=== PATIENT | female | born 1935 | race Caucasian/White ===

== ENCOUNTER 2017-05-24 22:02 | Inpatient (IN) | payer OTHER, MEDICARE ==
--- NOTE | 2017-05-24 22:23 | CPEKG ---
Heart Rate: 79 RR Interval: 759 P-R Interval: 172 QRSD Interval: 98 QT Interval: 376 QTC Interval: 432 P [place]: 21 QRS [place]: 34 T Wave [place]: 108 EKG Severity - ABNORMAL ECG - EKG Impression: SINUS RHYTHM EKG Impression: MULTIPLE ATRIAL PREMATURE COMPLEXES EKG Impression: PROBABLE LEFT ATRIAL ABNORMALITY EKG Impression: NONSPECIFIC T ABNORMALITIES, LATERAL LEADS Electronically Signed By: Felicia Perea 25-May-2017 08:00:40
--- NOTE | 2017-05-24 22:25 | EDPHY ---
H & P Stated Complaint: difficulty walking and speaking HPI/ROS: HPI The patient presents brought in by ambulance with right-sided leg weakness which she noticed initially at 6:30 p.m. roma. She has been sick for the last 3 weeks, feeling tired and weak, spending most of her day in bed. She has been evaluated by her primary care doctor and was diagnosed with a pneumonia and is currently taking azithromycin. Three days ago she had an abnormal chest x-ray she says. Ludinight she was walking downstairs and noticed that it was difficult for her right leg to go down the stairs. She was able to walk and did not fall. Then again when she went up stairs she had difficulty walking because her leg felt weak. She did not have any numbness or tingling of her leg. She called her primary care doctor and was instructed to call 911 which she did. She does not have any weakness of her arms, does not have any facial droop that she has noticed. She also says that she had some difficulty finding the words to say when she was speaking. However, her was with her and did not notice any slurring of her speech are any difficulties in her speech. REVIEW OF SYSTEMS Constitutional: No fever, no chills. Eyes: No discharge. ENT: No sore throat. Cardiovascular: No chest pain, no palpitations. Respiratory: No cough, no shortness of breath. Gastrointestinal: No abdominal pain, no vomiting. Genitourinary: No hematuria. Musculoskeletal: No back pain. Skin: No rashes. Neurological: No headache. PMHx: History of lung cancer status post lobectomy, she is on supplemental oxygen at home, hypertension Soc Hx: Lives at home with her and a gunbarrel PHYSICAL General Appearance: Eyes: Pupils equal and round no pallor or injection ENT, Mouth: Mucous membranes moist Respiratory: There are no retractions, lungs are clear to auscultation Cardiovascular: Regular rate and rhythm Gastrointestinal: Abdomen is soft and non-tender, no masses, bowel sounds normal Neurological: A&O oriented x4, cranial nerves 2-12 intact, 5/5 strength in upper and lower extremities which is symmetric, sensation is intact to light touch, speech is fluid, no slurring Skin: Warm and dry, no rashes Musculoskeletal: Neck is supple non tender Extremities: symmetrical, full range of motion Psychiatric: Patient is oriented X 3, there is no agitation Source: Patient, EMS Exam Limitations: No limitations - Personal History Current Tetanus Diphtheria and Acellular Pertussis (TDAP): Yes Tetanus Vaccine Date: < 10 YRS - Medical/Surgical History Other PMH: lung ca, reflux,htn, - Social History Smoking Status: Never smoked Constitutional: Initial Vital Signs Temperature (C) 36.9 C 05/24/17 22:13 Heart Rate 88 05/24/17 22:13 Respiratory Rate 20 05/24/17 22:13 Blood Pressure 110/88 H 05/24/17 22:13 O2 Sat (%) 95 05/24/17 22:13 O2 Delivery Mode Nasal Cannula O2 (L/minute) 3 Allergies/Adverse Reactions: Penicillins Allergy (Severe, Verified 07/24/12 13:21) THROAT SWELLS, SOB/HIVES ENVIRONMENTAL Allergy (Mild, Uncoded 07/24/12 13:41) STUFFY NOSE AND COUGH Home Medications: Medication Instructions Recorded Aspirin [Aspirin 81mg (*)] 81 mg PO DAILY 06/09/12 Glipizide [Glipizide 5 mg (RX)] 10 mg PO BIDMEAL 06/09/12 Levothyroxine [Synthroid 112 mcg 112 mcg PO DAILY06 06/09/12 (*)] Lisinopril [Zestril 20 mg (*)] 20 mg PO DAILY 06/09/12 Albuterol [Proventil Inhaler (RX)] 1 puffs IH PRN PRN 07/24/12 metFORMIN HCL [Glucophage 500 mg 1,000 mg PO BIDMEAL 07/24/12 (RX)] FLUoxetine [Prozac 20 MG (RX)] 20 mg PO DAILY 10/15/12 Furosemide [Lasix 40 MG (RX)] 40 mg PO DAILY 10/15/12 Omeprazole 20 mg PO DAILY 10/15/12 Azithromycin 05/24/17 Carvedilol 05/24/17 Spironolactone 05/24/17 Medical Decision Making - Diagnostics Imaging Results: Imaging Impressions Chest X-Ray 05/24/17 22:19 Impression: 1. New pleural nodularity in the right chest with right hilar fullness, which could be related to recurrence. If a recent CT chest has not been performed, CT chest would be useful for further evaluation. 2. New right basilar consolidation and elevation of the right hemidiaphragm, which could be related to atelectasis, effusion, and/or pneumonia. 3. Additional findings as above. Findings discussed with Felicia Perea MD 05/24/2017 at 22:58. Head CT 05/24/17 22:19 Impression: 1. No acute intracranial findings. 2. Diffuse cerebral atrophy with periventricular and subcortical low attenuation consistent with chronic microvascular ischemic gliosis. 3. Additional findings as above. Findings discussed with Felicia Perea MD 05/24/2017 at 23:04. Chest CT 05/24/17 23:05 Impression: 1. Innumerable bilateral pulmonary nodules consistent with metastases. 2. Masslike fullness in the region of a right upper lobe resection line, suspicious for local recurrence. 3. Probable subcarinal adenopathy. 4. Large loculated right pleural effusion, likely malignant. 5. Indeterminate right breast nodule, new since 2012. 6. Additional findings as above. Findings discussed with Felicia Perea MD 05/25/2017 at 0:06. Differential Diagnosis: 81-year-old female with lung cancer on home oxygen, recent respiratory infection on azithromycin with 3 weeks of generalized weakness presents with several hours of right leg weakness by report and difficulty with her speech. On exam, she has no neurologic deficits. NIH stroke scale is 0. She may have some subtle leg weakness that we do not see on exam currently. CT scan of the head was performed which showed no acute abnormalities. The patient had no recurrence of her symptoms. Chest x-ray was performed given her generalized malaise over the last few weeks and history of abnormal chest x- ray. This did show what appears to be a pleural effusion. Because of her history of malignancy CT scan of her chest was performed which unfortunately did demonstrate recurrence of her cancer with metastatic disease of her lungs and large loculated pleural effusion. I discussed this with her. She may benefit from thoracentesis while in the hospital. I feel she may have suffered from a TIA, however given her CT scan findings I would entertain brain or spine Mets is the cause of her symptoms. I discussed the case with Dr. Calle of the hospitalist service and we will admit the patient. - Data Points Laboratory Results: Laboratory Results 05/24/17 22:20 05/24/17 22:20 05/24/17 05/24/17 05/24/17 23:45 22:20 22:20 WBC 8.30 10^3/uL 10^3/uL (3.80-9.50) RBC 4.59 10^6/uL 10^6/uL (4.18-5.33) Hgb 13.5 g/dL g/dL (12.6-16.3) Hct 42.2 % % (38.0-47.0) MCV 91.9 fL fL (81.5-99.8) MCH 29.4 pg pg (27.9-34.1) MCHC 32.0 g/dL L g/dL (32.4-36.7) RDW 13.7 % % (11.5-15.2) Plt Count 292 10^3/uL 10^3/uL (150-400) MPV 10.2 fL fL (8.7-11.7) Neut % (Auto) 70.3 % % (39.3-74.2) Lymph % (Auto) 12.8 % L % (15.0-45.0) [place] % (Auto) 11.9 % % (4.5-13.0) Eos % (Auto) 4.1 % % (0.6-7.6) Baso % (Auto) 0.5 % % (0.3-1.7) Nucleat RBC Rel Count 0.0 % % (0.0-0.2) Absolute Neuts (auto) 5.84 10^3/uL 10^3/uL (1.70-6.50) Absolute Lymphs (auto) 1.06 10^3/uL 10^3/uL (1.00-3.00) Absolute Monos (auto) 0.99 10^3/uL H 10^3/uL (0.30-0.80) Absolute Eos (auto) 0.34 10^3/uL 10^3/uL (0.03-0.40) Absolute Basos (auto) 0.04 10^3/uL 10^3/uL (0.02-0.10) Absolute Nucleated RBC 0.00 10^3/uL 10^3/uL (0-0.01) Immature Gran % 0.4 % % (0.0-1.1) Immature Gran # 0.03 10^3/uL 10^3/uL (0.00-0.10) Sodium 139 mEq/L mEq/L (134-144) Potassium 5.3 mEq/L H mEq/L (3.5-5.2) Chloride 103 mEq/L mEq/L (97-110) Carbon Dioxide 24 mEq/l mEq/l (22-31) Anion Gap 12 mEq/L mEq/L (8-16) BUN 22 mg/dL mg/dL (7-23) Creatinine 1.4 mg/dL H mg/dL (0.6-1.0) Estimated GFR 36 Glucose 112 mg/dL H mg/dL (70-100) Calcium 9.8 mg/dL mg/dL (8.5-10.4) Troponin I 0.017 ng/mL ng/mL (0.000-0.034) Urine Color YELLOW Urine Appearance MODERATELY TURBID Urine pH 5.0 (5.0-7.5) Ur Specific [place] 1.027 (1.002-1.030) Urine Protein NEGATIVE (NEGATIVE) Urine Ketones TRACE H (NEGATIVE) Urine Blood NEGATIVE (NEGATIVE) Urine Nitrate NEGATIVE (NEGATIVE) Urine Bilirubin NEGATIVE (NEGATIVE) Urine Urobilinogen 2.0 EU H EU (0.2-1.0) Ur Leukocyte Esterase 3+ H (NEGATIVE) Urine RBC 1-3 /hpf /hpf (0-3) Urine WBC 5-10 /hpf H /hpf (0-3) Ur Epithelial Cells 2+ /lpf H /lpf (NONE-1+) Urine Bacteria TRACE /hpf H /hpf (NONE SEEN) Urine Mucus TRACE /lpf /lpf (NONE-1+) Urine Glucose NEGATIVE (NEGATIVE) Medications Given: Sodium Chloride (Ns) 1,000 mls @ 75 mls/hr IV CONT ZEFERINO Stop: 11/21/17 02:59 Last Admin: 05/25/17 03:34 Dose: 1,000 mls Discontinued Medications Sodium Chloride (Ns) 1,000 mls @ 0 mls/hr IV EDNOW ONE; Wide Open PRN Reason: Protocol Stop: 05/24/17 23:06 Last Admin: 05/24/17 23:55 Dose: 1,000 mls Departure - Departure Disposition: [facility] Acute Clinical Impression: Right leg weakness, Pleural effusion Lung cancer Qualifiers: Laterality: unspecified laterality Lung location: unspecified part of lung Qualified Code(s): C34.90 - Malignant neoplasm of unspecified part of unspecified bronchus or lung Condition: Fair
[2017-05-24 22:36] LABS: % IMMATURE GRANULYOCYTES 0.4 % (0.0-1.1); ABSOLUTE IMMATURE GRANULOCYTES 0.03 10^3/uL (0.00-0.10); ADD DIFF? NO; ADD MORPH? NO; ADD SCAN? NO; ATYPICAL LYMPHOCYTE FLAG 0 (0-99); FRAGMENT RBC FLAG 0 (0-99); HEMATOCRIT 42.2 % (38.0-47.0); HEMOGLOBIN 13.5 g/dL (12.6-16.3); LEFT SHIFT FLG 0 (0-99); LIPEMIA HEMOLYSIS FLAG 80 (0-99); MEAN CELL HEMOGLOBIN 29.4 pg (27.9-34.1); MEAN CELL VOLUME 91.9 fL (81.5-99.8); MEAN PLATELET VOLUME 10.2 fL (8.7-11.7); PLATELET CLUMPS FLAG 0 (0-99); PLATELET COUNT 292 10^3/uL (150-400); RED BLOOD CELL COUNT 4.59 10^6/uL (4.18-5.33); RED CELL DISTRIBUTION WIDTH 13.7 % (11.5-15.2)
[2017-05-24 22:47] LABS: ANION GAP 12 mEq/L (8-16); CALCIUM 9.8 mg/dL (8.5-10.4); CARBON DIOXIDE 24 mEq/l (22-31); CHLORIDE 103 mEq/L (97-110); CREATININE 1.4 mg/dL (0.6-1.0); GLOMERULAR FILTRATION RATE 36; GLUCOSE 112 mg/dL (70-100); POTASSIUM 5.3 mEq/L (3.5-5.2); SODIUM 139 mEq/L (134-144)
[2017-05-24 23:00] LABS: TROPONIN I 0.017 ng/mL (0.000-0.034)
[2017-05-24] MEDS ORDERED: PANTOPRAZOLE SODIUM 40 MG VIAL ONE (23:01)
[2017-05-24] MEDS ORDERED: ONDANSETRON 4 MG/2 ML VIAL ONE (23:01)
[2017-05-24] MEDS ORDERED: NS 1,000 ML IV ONE (23:05)
[2017-05-24] MEDS ORDERED: IOPAMIDOL (ISOVUE-300) 100 ML BTL ONE (23:34)
[2017-05-25 00:05] LABS: BACTERIA TRACE /hpf (NONE SEEN); COLOR YELLOW; LEUKOCYTE ESTERASE,URINE 3+ (NEGATIVE); MUCUS TRACE /lpf (NONE-1+); NITRITE,URINE NEGATIVE (NEGATIVE)
[2017-05-25] MEDS ORDERED: LABETALOL HCL 5 MG/ML 20 ML MDV IVP PRN (00:35)
[2017-05-25] MEDS ORDERED: HYDROCODONE/APAP 5/325 TAB PO PRN (00:40)
[2017-05-25] MEDS ORDERED: ONDANSETRON 4 MG/2 ML VIAL IVP PRN (00:40)
[2017-05-25] MEDS ORDERED: LORazepam 2 MG/ML INJ IVP PRN (02:50)
[2017-05-25] MEDS ORDERED: NS 1,000 ML IV SCH (03:00)
[2017-05-25] MEDS ORDERED: D50W 25 GM/50 ML SYR IVP PRN (03:30)
[2017-05-25 05:28] LABS: % IMMATURE GRANULYOCYTES 0.3 % (0.0-1.1); ABSOLUTE IMMATURE GRANULOCYTES 0.02 10^3/uL (0.00-0.10); ADD DIFF? NO; ADD MORPH? NO; ADD SCAN? NO; FRAGMENT RBC FLAG 0 (0-99); HEMATOCRIT 38.7 % (38.0-47.0); HEMOGLOBIN 12.4 g/dL (12.6-16.3); LEFT SHIFT FLG 0 (0-99); LIPEMIA HEMOLYSIS FLAG 80 (0-99); RED CELL DISTRIBUTION WIDTH 13.6 % (11.5-15.2)
--- NOTE | 2017-05-25 05:35 | GHP ---
[f rep st] HISTORY AND PHYSICAL DATE OF ADMISSION: 05/24/2017 SOURCE: Patient provides history, appears reliable. Her is at bedside and supplements maged sloan. EMR reviewed and case discussed with ED provider. HISTORY OF PRESENT ILLNESS: This is a very pleasant, 81-year-old female with past medical history si gnificant for lung cancer status post resection in 2012, hypertension, diabetes, CHF, GERD, hypothyro idism, depression, macular degeneration, who presents to the emergency department with complaints of ongoing difficulties with walking and speaking. Symptoms were identified at approximately 6:30 p.m. The patient states that she noticed that her right leg appeared to be quite heavy and she was having to really focus to lift her leg to get up and down the stairs. Over the course of this time patient also reports that she noticed that she was having trouble finding her words and was able to say them clearly but was just taking some time to be able to move her thoughts into speech. Her mick es witnessing any dysarthria, slurred speech, garbled speech, facial drooping or any confusion. Afte r some consideration, patient thinks that perhaps her right leg weakness may have started even the da y prior. The patient has been feeling quite fatigued and short of breath with ongoing cough for the last 3 weeks and so she has primarily been staying in bed for the majority of the last several days. Also, she has had significantly decreased appetite. She reports a 10 pound unintentional weight los s since January. The patient denies any fevers, chills, or sweats. Upon arrival to the emergency depar tment, patient's symptoms have resolved. The patient recently completed a course of azithromycin. S he had been having ongoing coughing, occasionally productive and worsening dyspnea. Initial evaluati on was concerning for some changes from her baseline. She is status post right upper lobe resection. The patient states that her PCP initiated treatment for pneumonia while awaiting further studies in cluding plans for outpatient CT and repeat chest x-ray. REVIEW OF SYSTEMS: GENERAL: No fevers, chills, sweats. SKIN: No rashes sores. ENT: No congestion or sore throat. EYES: Patient with declining vision, has been undergoing injections for macular de generation, but no ocular pain or new acute changes. CV: The patient denies any chest pain or palpi tations except with some pleuritic type substernal chest pain with coughing only. RESPIRATORY: Idalmis ent with noted shortness of breath. She finds that she has been having increased oxygen needs at [facility]. She does normally wear oxygen at h.s. but has been finding she needs it during the day. She mick es any orthopnea or PND at home, but again has been wearing her oxygen. GI: Some nausea in the a.m. for the last 3 weeks without any vomiting. No abdominal pain. No melena or hematochezia. : No dysuria, hematuria, urgency, frequency. No flank pain. MUSCULOSKELETAL: The patient denies any acu te joint or muscle pains. NEURO: Patient denies any headache. No numbness, tingling. Right leg he aviness as noted per HPI. PSYCH: The patient's mood is stable. The remainder review of systems neg ative except as noted above. ALLERGIES: Penicillin and Lipitor causing myalgias. HOME MEDICATIONS: As per EMR. Spironolactone, carvedilol, status post azithromycin, metformin, omep razole, lisinopril, levothyroxine, glipizide, furosemide, fluoxetine, aspirin, albuterol. PAST MEDICAL HISTORY: Significant for lung cancer diagnosed and treated in 2012 with a right upper l obe lobectomy. Patient reports that the tumor was completely encased and did not undergo any radiati on as it was felt that she was in remission and reports a followup CT was 1-2 years ago but cannot re call the specific details. Benign essential hypertension, diabetes type 2, GERD, hypothyroidism, dep ression, CHF, macular degeneration, seasonal allergies, nocturnal hypoxia with requirement for oxygen at h.s. PAST SURGICAL HISTORY: Significant for right upper lobe lobectomy, right total knee arthroplasty, ap pendectomy, cataract surgery bilaterally with extraction and lens placement, lumpectomy of the breast which was found to be benign and hysterectomy. FAMILY HISTORY: Significant for CAD in father, age 58. Mother with GA at age 45. Maternal grandmother with GA at age 45 as well as a TIA. SOCIAL HISTORY: Patient is , lives with her , Oracio. Does not smoke. Has had exposur e to secondhand smoke as a child. No drugs or alcohol reported. CODE STATUS: The patient with advance directive completed. Her daughter, Rosario Cordova, is MD GABRIELLE [place] nd patient desires to be a full code. Does not want prolonged life support. PHYSICAL EXAMINATION: VITALS: Upon arrival, blood pressure 110/88, heart rate 88, respiratory rate 20, O2 saturation 95% on 3 L by nasal cannula. Temperature is 36.9. Vitals on the floor: Blood pre ssure 169/98, heart rate 90, respiratory rate 19, O2 saturation 97% on 2 L by nasal cannula. Tempera ture 36.9. GENERAL: No acute distress. Very pleasant, obese, elderly lady who appears slightly you nger than stated age, is lying quietly in bed. Her is at bedside. HEAD: Normocephalic, atr aumatic. EYES: Extraocular muscles are intact. Pupils equal, round, react to light bilaterally and symmetric. Lens reflex is appreciated bilaterally. No scleral icterus or conjunctival injection. ENT: Mucous membranes appear slightly dry. No oropharyngeal erythema or exudates. Dentition intact . NECK: Supple, trachea is midline. CV: Regular rate and rhythm. No murmurs, rubs, or gallops ap preciated. No chest wall tenderness to palpation. RESPIRATORY: Unlabored breathing. Lungs are janelle ar to auscultation bilaterally with the exception of diminished breath sounds bilaterally, worse on t he right than the left. No rhonchi or rales appreciated. The patient does have an intermittent coug h that is nonproductive during the interview. GI: Abdomen is obese with positive bowel sounds, soft , nontender to palpation. No rebound, guarding, or masses appreciated. : No Fisher in place. No suprapubic tenderness to palpation. EXTREMITIES: Patient without any cyanosis, clubbing, or edema a ppreciated. Patient with 1+ pedal pulses bilateral lower extremities. NEURO: Cranial nerves 2-12 a re intact symmetric bilaterally. Patient is awake, alert, and oriented x3. Moves all extremities an d strength with generalized weakness. The patient is able to turn on her side, some difficulty sitti ng up independently. No focal weakness noted. Sensation intact to upper and lower extremities bilat erally and symmetric. PSYCHIATRIC: The patient is awake, alert, and oriented x4. Thought process: Content and questions are appropriate. Patient does appears just a little bit anxious. LABORATORY STUDIES: WBC 8.30, hemoglobin and hematocrit 13.5 and 42.2, MCV 91.9, platelet count 292, no bands. Sodium is 139, potassium 5.3, chloride 103, CO2 24, anion gap 12, BUN 22, creatinine is 1 .4, GFR is 36. Baseline creatinine, based on available previous labs, appears to be 1.1. Glucose 11 2, calcium 9.8, troponin 0.017. Urinalysis: Specific gravity is 1.027, pH of 5.0, yellow, moderatel y turbid, trace ketones, 2.0 urobilinogen, 3+ leukocyte esterase, RBCs 1-3 WBCs, 5-10, epithelial ifeanyi ls 2+, trace bacteria. IMAGE STUDIES: EKG, reviewed myself, showing normal sinus rhythm with PACs, no acute ST changes. Chest x-ray: Image and report reviewed myself showing new pleural nodularity right chest with right hilar fullness. New right basilar consolidation and elevation of the right hemidiaphragm, could be r elated to atelectasis, effusion, or pneumonia. Cardiomegaly, grossly stable. Old healed right rib f ractures noted. CT chest with contrast showing innumerable bilateral pulmonary nodules consistent with metastasis. M asslike fullness in the region of the right upper lobe resection line, suspicious for local recurrenc e. Probable subcarinal adenopathy. Large loculated right pleural effusion, likely malignant. Indet erminate right breast nodule, new since 2012. Additional findings: Cardiomegaly that appears stable . Decreased trace pericardial effusion. Moderate atherosclerosis in normal caliber aorta. No centr al pulmonary embolus. No aggressive osseous lesions identified. Degenerative changes in the spine. Old fused right 4th rib fracture. DISCUSSION AND DECISION-MAKIN. This is a very pleasant 81-year-old female with multiple chronic medical problems who presents wi th complaints of right leg weakness and word-finding difficulties. Differential diagnosis including transient ischemic attack versus less likely cerebrovascular accident, as patient's symptoms have com pletely resolved versus hypoxia versus acute kidney injury and hyperkalemia. CT of the head was nega tive. NIH scoring is 0 at this time and upon arrival to the ER. We will obtain an MRI in the [facility] to verify given patient does have multiple risk factors. Ativan 0.5 will be given prior to procedu re. PT, OT and the remainder of the stroke protocol is in place. 2. Metastatic disease of the lung. The patient does have a history of lung cancer and this likely r epresents a recurrence. She also has a noted nodule on the right breast, which is new since 2012. Diane garza does note a history of a lumpectomy that was found to be benign. The patient does have a larg e loculated effusion that is concerning for malignant effusion. The patient is also complaining of f eeling significantly symptomatic related to her shortness of breath and coughing. Following MRI resu lts, will further investigate the possibility of doing a diagnostic and therapeutic thoracentesis. Diane garza will be made n.p.o. as she does report she feels like she is drowning is amenable to any oppor tunities for relief of her symptoms. 3. Acute kidney injury, likely related to dehydration with a history of recent decline in oral intak e secondary to fatigue and is generally feeling unwell with a poor appetite. The patient also with s ome hyperkalemia, likely also related. She has received a liter bolus in the emergency department. We will continue some gentle hydration overnight as patient continues to have poor oral intake and syed s complaints of nausea. 4. Asymptomatic bacteriuria as per ISID guidelines. Patient is afebrile, she is asymptomatic and al though grossly abnormal, will not treat unless patient develops any symptoms or fever. She does not have any evidence of leukocytosis either. 5. Diabetes type 2. Will hold metformin with acute kidney injury. We will also check a lactic acid in the morning. We will put patient on insulin sliding scale for now at this time, and once diet ca n be advanced, will be on ADA diet. 6. Benign essential hypertension. Blood pressure is mildly elevated, but patient is asymptomatic. We will continue to monitor, p.r.n. hydralazine. 7. Congestive heart failure, type unknown. The patient denies any orthopnea, paroxysmal nocturnal d yspnea or lower extremity symptoms consistent with congestive heart failure exacerbation, the pleural effusion is most likely malignant in nature. 8. Fluid, electrolyte, nutrition. Gentle IV fluid hydration overnight for gentle hydration. Oseas mckoy does appear dry. She does have a history of congestive heart failure. Will need to monitor fluid status closely. 9. Electrolytes. We will repeat a BMP in the morning to see if the potassium has declined status po st IV fluids. 10. Prophylaxis. SCDs, holding anticoagulation in setting of possible thoracentesis. 11. COR status at this time is full. Patient with advance directives. Daughter, Rosario Cordova, is MD ANTHONY and she does not want any long-term intubation. DISPOSITION: Patient admitted to observation at this time pending MRI and further evaluation of this pleural effusion, which possibly may be able to follow up outpatient if patient is stable. /[id number]/MODL
[2017-05-25 05:45] LABS: ATYPICAL LYMPHOCYTE FLAG 10 (0-99); MEAN CELL HEMOGLOBIN 29.6 pg (27.9-34.1); MEAN CELL VOLUME 92.4 fL (81.5-99.8); MEAN PLATELET VOLUME 9.9 fL (8.7-11.7); PLATELET CLUMPS FLAG 0 (0-99); PLATELET COUNT 225 10^3/uL (150-400); RED BLOOD CELL COUNT 4.19 10^6/uL (4.18-5.33)
[2017-05-25 05:52] LABS: ALANINE AMINOTRANSFERASE 28 IU/L (9-52); ALBUMIN 3.2 g/dL (3.5-5.0); ALKALINE PHOSPHATASE 64 IU/L (38-126); ANION GAP 10 mEq/L (8-16); ASPARTATE AMINOTRANSFERASE 14 IU/L (14-46); BILIRUBIN,TOTAL 0.3 mg/dL (0.1-1.4); CALCIUM 8.9 mg/dL (8.5-10.4); CARBON DIOXIDE 27 mEq/l (22-31); CHLORIDE 104 mEq/L (97-110); CREATININE 1.2 mg/dL (0.6-1.0); GLOMERULAR FILTRATION RATE 43; GLUCOSE 81 mg/dL (70-100); POTASSIUM 4.7 mEq/L (3.5-5.2); SODIUM 141 mEq/L (134-144); TOTAL PROTEIN 5.5 g/dL (6.3-8.2)
[2017-05-25] MEDS ORDERED: ALBUTEROL 3 ML DEYVIAL IH PRN (07:00)
[2017-05-25] MEDS ORDERED: ALBUTEROL 60 PUFFS/8 GM MDI IH PRN (07:01)
[2017-05-25] MEDS ORDERED: ALBUTEROL 200 PUFFS/18 GM MDI IH PRN (07:30)
[2017-05-25] MEDS ORDERED: ENOXAPARIN 30 MG/0.3 ML SYR SC SCH (09:00)
--- NOTE | 2017-05-25 09:17 | HOSPPROG ---
Hospitalist Progress Note Assessment/Plan: AHRF 2/2 pulmonary nodules with masslike RUL fullness concerning for recurrence of prior lung cancer - On 2 LPM O2. Had RUL lobectomy 2012, CTA in 2013 post- resection was negative for nodules of e/o malignancy. She has not seen Dr. Butts in ~1.5 yrs. -sample pleural fluid -oncology consulted, discussed case with Dr. Cervantes who will consult -wean O2 as above Pleural effusion - thoracentesis today for diagnostic and therapeutic purposes -send fluid for cell count/diff, culture and cytology -discussed likely to recur, could consider pleurx catheter if has rapid reaccumulation RLE weakness - CT head neg. -MRI brain this am -Also recommend MRI whole spine to evaluate for spinal mets contributing to symptoms. Pt wishes to defer this until she speaks with her primary and oncologist -PT/OT DM type 2 - bg's well controlled. -cont SSI, hold metformin for now Hypertension - resume outpt meds once med rec completed Chronic heart failure - stable, no e/o acute exacerbation -cont home meds, awaiting med rec SEBASTIÁN / CKD - near baseline ~1.3 Hypothyroidisim - cont LT4 Depression - cont SSRI DVT PPLX - high risk, Lovenox Full code Dispo - change to inpt, will need ongoing hospitalization for w/u of pulmonary nodules, pleural effusion and RLE weakness, PT/OT to eval mobility Subjective: Pt feels ok. RLE weakness seems improved. No speech abnormalities. No syed or vision changes. She denies CP or SOB, mild cough. Last saw Dr. Butts at [facility] 1.5 yrs ago. Objective: Vital Signs Temp Pulse Resp BP Pulse Ox 36.8 C 86 22 H 172/91 H 96 05/25/17 08:02 05/25/17 08:34 05/25/17 08:34 05/25/17 08:02 05/25/17 08:34 Laboratory Results 05/25/17 05:17 05/25/17 05:17 05/24/17 05/25/17 05/26/17 06:59 05:59 05:59 Intake Total 225 Balance 225 - Physical Exam Constitutional: no apparent distress Eyes: PERRL Ears, Nose, Mouth, Throat: moist mucous membranes Cardiovascular: regular rate and rhythym Respiratory: no respiratory distress, clear to auscultation Gastrointestinal: normoactive bowel sounds, soft, non-tender abdomen Skin: warm Musculoskeletal: other (4/5 proximal RLE strength 5/5 LLE strength) Neurologic: AAOx3 Psychiatric: interacting appropriately ICD10 Worksheet Patient Problems: Problems Problem Status Onset Lung cancer Acute Pleural effusion Acute Right leg weakness Acute
--- NOTE | 2017-05-25 09:51 | PDMN ---
Medical Necessity Medical necessity: C/M review: est. > 2 [place] LOS for eval and TX of acute hypoxemic respiratory failure secondary to pulmonary nodules with mass like RUL fullness concerning for recurrence of lung cancer, pleural effusion, right lower extremity weakness, acute kidney injury requiring planned Oncology consult , 05/25/2017 thoracentesis, ongoing cardiac monitoring, IV fluids, supplemental O2 2L/min., acute inpt PT/OT, comorbid type 2 diabetes, hypertension, chronic heart failure, chronic kidney disease, hypothyroidism, depression, hx 2012 RUL lobectomy for lung cancer, CTA in 2012 post resection negative for pulmonary nodules of malignancy per H/P.
[2017-05-25] MEDS ORDERED: ENOXAPARIN 40 MG/0.4 ML SYR SC SCH (10:00)
[2017-05-25] MEDS: INSULIN LISPRO 100 UNIT/ML SC SCH ×3 (10:14→17:40)
[2017-05-25] MEDS: ASPIRIN 81 MG CHEWABLE TAB PO SCH (11:06)
[2017-05-25] MEDS ORDERED: LIDOCAINE 1% 300 MG/30 ML SDV ONE (11:19)
[2017-05-25 11:27] LABS: INR 1.03 (0.83-1.16); PROTIME(PATIENT) 13.4 SEC (12.0-15.0)
--- NOTE | 2017-05-25 12:31 | GCON ---
[f rep st] CONSULTATION HISTORY OF PRESENT ILLNESS: The patient is an 81-year-old female who is admitted for a complaint of some weight loss, right leg weakness and a persistent cough. She has a previous history of lung cancer, which I will detail below. She has been not feeling well since this summer, and she presented to the ER. A chest x-ray showed new pleural nodularity in the right chest with right hilar fullness and new right basilar consolidation. A CT angiogram showed innumerable bilateral pulmonary nodules consistent with metastasis. There was a masslike fullness in the region of the right upper lobe suspicious for local recurrence. There is probable subcarinal adenopathy and a large loculated right pleural effusion. She denies any pain. She had a brain MRI that was significant only for white matter changes. Her right leg is feeling better today. Lung cancer was diagnosed when she presented with symptoms of bronchitis in 2012. 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 Clinical staging at the time of resection in July of 2012 was T2 N1. She did not receive adjuvant therapy. She followed up with my partner, Dr. Butts, but was lost to follow up after 2013. 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 She is a never smoker. PAST MEDICAL HISTORY: Is otherwise significant for hypertension, diabetes, GERD , hypothyroidism, depression, CHF, macular degeneration, seasonal allergies. SURGERIES: Include a right upper lobectomy, right total knee arthroplasty, appendectomy, lumpectomy of the breast which is benign and a hysterectomy. FAMILY HISTORY: Coronary artery disease in father. Mother with an TX at 45. She is , accompanied by her , Oracio. PHYSICAL EXAMINATION: VITAL SIGNS: Stable. GENERAL: She is a somewhat overweight, alert female. HEENT: Pharynx is unremarkable. I detect no palpable adenopathy. LUNGS: Diminished breath sounds at the bases, right worse than left. CARDIAC: Unremarkable. ABDOMEN: Obese. BREAST: Reveals no palpable masses. NEURO: Nonfocal at this time. LABORATORY DATA: White count today 6.34, hemoglobin 12.4, platelets 225,000. Chemistry panel is unremarkable. In addition to the changes described on the chest CT scan, there was felt to be an indeterminate right breast nodule in the deep right breast. IMPRESSION: The clinical scenario is quite suspicious for recurrent lung carcinoma. PLAN: Is to tap her right effusion. If it is malignant and consistent with lung carcinoma, I am not sure she needs further evaluation. She does have a breast nodule. The workup of that will probably depend on the overall status of her lung cancer, although a right breast ultrasound could be obtained. The right leg weakness has resolved. There are no obvious bony destructive lesions on the chest CT scan and with a normal MRI of the brain, I am not sure I would pursue that much further at this point in time. She does have an EGFR gene mutation which might indicate a significant possibility of some palliation with targeted drugs such as Tarceva. If she is reasonably stable after her thoracentesis, she could probably go home and follow up with my partner, Dr. Butts late next week to review the situation. /[id number]/MODL MTDD
[2017-05-25] MEDS: ACETAMINOPHEN 325 MG TAB PO PRN (12:59)
[2017-05-25 13:47] LABS: LD, PLEURAL FLUID 306 IU/L
[2017-05-25 14:10] LABS: LACTATE DEHYDROGENASE 354 IU/L (313-618)
--- NOTE | 2017-05-25 14:30 | ECHO ---
[email or web address] [address] [address] Main: [phone] Fax: Transthoracic Echocardiogram Name: MARCELO RANGEL MR#: [id number] Study Date: 05/25/2017 Study Time: 10:21 AM Date of : 1935 Age: 81 year(s) Height: 160 cm (63 in.) Weight: 79.38 kg (175 lb.) BSA: 1.83 m2 Gender: Female Examination: Echo with Agitated Saline Indication: ischemic stroke with bubble Image Quality: Adequate Contrast: I.V. dose of agitated saline Requested by: Leia Calle BP: 172 mmHg/91 mmHg Heart Rate: 90 bpm Rhythm: Normal sinus rhythm with ectopy Indication: ischemic stroke with bubble Procedure Staff Hospice Art Therapist: eHydi Daily Reading Physician: Joseph Oleary Requesting Provider: Conclusions: Left ventricle upper limits of normal. Mildly to moderately reduced systolic funtion. EF is 38 %. Grade 1 diastolic dysfunction (abnormal relaxation). The left atrium is mildly dilated. An agitated saline study was performed and was negative for intracardiac shunting. The right atrium is mildly dilated. Mild to moderate mitral regurgitation. Mild to moderate tricuspid valve regurgitation. Right ventricular systolic pressure measures 50mmHg. The pulmonary artery pressure is moderately increased. Measurements: Chambers Valvular Assessment AV/MV Valvular Assessment TV/PV Normal Normal Normal Name Value Range Name Value Range Name Value Range Ao Layla (MM): 3.1 cm (2.2 cm-3.7 AV Vmax: 0.96 m/s (1 m/s-1.7 TR Vmax: 3.15 mm/s ( - ) cm) m/s) TR PGmax: 40 mmHg ( - ) IVSd (2D): 1.0 cm (0.6 cm-1.1 AV maxP mmHg ( - ) syst. PAP: 50 mmHg ( - ) cm) LVOT Vmax: 0.84 m/s (0.7 m/s-1.1 PV Vmax: 0.67 m/s (0.6 m/s-0.9 LVDd (2D): 5.2 cm (3.9 cm-5.3 m/s) m/s) cm) MV E Vmax: 0.87 m/s ( - ) PV PGmax: 2 mmHg ( - ) LVDs (2D): 4.4 cm (2.1 cm-4 MV A Vmax: 1.41 m/s ( - ) cm) MV E/A: 0.62 ( - ) LVPWd (2D): 1.1 cm ( - ) LVEF (BP): 38 % (>=55 %) RVDd(2D): 3.4 cm (1.9 cm-3.8 cmmm) Continued Measurements: Patient: MARCELO RANGEL Study Date: 05/25/2017 Page 1 of 2 10:21 AM Chambers Valvular Assessment AV/MV Valvular Assessment TV/PV Name Value Name Value Name Value LADs Lon.6 cm MV DecTime: 169 m/s CVP (est.): 10 mmHg LA Area: 22.9 cm2 MV E/E' Septal: 19.40 LA Volume: 66 ml MV E/E' Lateral: 24.10 LA Volume Index: 36.1 ml/m2 RA Area: 17.3 cm2 Additional Vessels Name Value Ao Ascendin.5 cm Findings: Left Ventricle: Left ventricle upper limits of normal. Borderline concentric LV hypertrophy. Mildly to moderately reduced systolic funtion. EF is 38 %. Mild to moderate global hypokinesis. Grade 1 diastolic dysfunction (abnormal relaxation). No thrombus in left ventricle. Right Ventricle: Normal size right ventricle. Normal RV function. Left Atrium: The left atrium is mildly dilated. An agitated saline study was performed and was negative for intracardiac shunting. No thrombus is noted in the left atrium. Right Atrium: The right atrium is mildly dilated. No thrombus in right atrium. Mitral Valve: There is mild thickening of the mitral valve leaflets. Mild to moderate mitral regurgitation. No mitral stenosis is present. Aortic Valve: The aortic valve is tri-leaflet. There is mild thickening of the aortic cusps. There is no aortic valve regurgitation. No aortic valve stenosis is present. Tricuspid Valve: The tricuspid valve appears normal. Mild to moderate tricuspid valve regurgitation. Right ventricular systolic pressure measures 50mmHg. The pulmonary artery pressure is moderately increased. Pulmonic Valve: Pulmonary valve not well visualized. Aorta: Normal size aortic root measuring 3.1 cm. Normal size ascending aorta measuring 2.5 cm. IVC: The IVC is mildly dilated. There is greater fransisco 50% respiratory excursion. Pericardium: No pericardial effusion. There is a pleural effusion. (No Signature Object) Patient: MARCELO RANGEL Study Date: 05/25/2017 Page 2 of 2 10:21 AM [id number]
--- NOTE | 2017-05-25 15:15 | ASMTCMCOM ---
CM Note CM Note Notes: Pt admitted for possible TIA but that was ruled out and a recurrence of her lung ca, first diagnosed in 2012, is the likely cause of her symptoms. Met with pt, and dtr. Pt had financial questions which were answered. Pt's dtr is planning on staying with pt and at [place]. Oncologist Dr Cervantes met with pt and she will f/u with her oncologist Dr Butts at [place]. Discussed with pt and family resources available for cancer pts. Pt has no DC needs. Date Signed: 05/25/2017 03:15 PM Electronically Signed By:Emperatriz Ross LCSW
[2017-05-25] MEDS: LEVOTHYROXINE 100 MCG TAB PO SCH (16:26)
[2017-05-25] MEDS: PRAVASTATIN SODIUM 20 MG TAB PO SCH (16:26)
[2017-05-25] MEDS: AZITHROMYCIN 250 MG TAB PO SCH (16:26)
[2017-05-25] MEDS: LISINOPRIL 10 MG TAB PO SCH (16:27)
[2017-05-25] MEDS: FLUoxetine 20 MG CAP PO SCH (16:27)
[2017-05-25] MEDS: CARVEDILOL 6.25 MG TAB PO SCH (17:40)
[2017-05-25] MEDS: metFORMIN HCL 500 MG TAB PO SCH (17:49)
[2017-05-25] MEDS: ALBUTEROL 200 PUFFS/18 GM MDI IH PRN (19:34)
[2017-05-25] MEDS: FLUTICASONE/SALMETER 250/50MCG DISKUS IH SCH (19:45)
[2017-05-25] MEDS ORDERED: LATANOPROST 0.005% 2.5 ML OPHT DROPS EACHEYE SCH (21:00)
[2017-05-26] MEDS: ACETAMINOPHEN 325 MG TAB PO PRN ×2 (00:24→04:37)
[2017-05-26 02:00] LABS: HEMOGLOBIN A1C 6.3 % (4.0-6.0)
[2017-05-26] MEDS: metFORMIN HCL 500 MG TAB PO SCH (04:32)
[2017-05-26] MEDS: LEVOTHYROXINE 100 MCG TAB PO SCH (04:38)
[2017-05-26 06:00] LABS: CHOLESTEROL 138 mg/dL (140-220); CHOLESTEROL/HDL RATIO 2.82 RATIO (1.00-4.44); HIGH DENSITY LIPOPROTEIN 49 mg/dL (40-85); LDL/HDL RATIO 1.37 RATIO (1.00-3.22); LOW DENSITY LIPOPROTEIN 67 mg/dL (80-100); NON-HIGH DENSITY LIPOPROTEIN 89 mg/dL (90-129); TRIGLYCERIDE 112 mg/dL (35-135); VERY LOW DENSITY LIPOPROTEINS 22 mg/dL (8-25)
[2017-05-26] MEDS: INSULIN LISPRO 100 UNIT/ML SC SCH ×2 (08:24→09:03)
[2017-05-26] MEDS ORDERED: FUROSEMIDE 40 MG TAB PO SCH (09:00)
[2017-05-26] MEDS: FLUTICASONE/SALMETER 250/50MCG DISKUS IH SCH (09:16)
[2017-05-26] MEDS: ALBUTEROL 200 PUFFS/18 GM MDI IH PRN (09:16)
[2017-05-26] MEDS: PRAVASTATIN SODIUM 20 MG TAB PO SCH ×3 (09:39→10:07)
[2017-05-26] MEDS: AZITHROMYCIN 250 MG TAB PO SCH (09:40)
[2017-05-26] MEDS: LISINOPRIL 10 MG TAB PO SCH (09:40)
[2017-05-26] MEDS: CARVEDILOL 6.25 MG TAB PO SCH ×2 (09:40→09:51)
[2017-05-26] MEDS: ASPIRIN 81 MG CHEWABLE TAB PO SCH (09:40)
[2017-05-26] MEDS: FLUoxetine 20 MG CAP PO SCH (09:40)
--- NOTE | 2017-05-26 10:29 | SOAPPROG ---
SOAP Progress Note Assessment/Plan: Assessment: 1. History of stage II NSCLC, EGFR mutated 2. New pleural effusion, likely malignant 3. Lung metastases Plan: - cytology on fluid pending. This is almost certainly a recurrence of her cancer - Best 1st line Rx will likely be an anti-EGFR agent (eg afatinib, Tarceva). - will arrange for outpt f/u with Dr. Butts - appears stable for discharge from my perspective 05/26/17 10:27 Subjective: feels better after thoracentesis. less short of breath. Objective: exam: breathing comfortably, NAD Lungs: dullness @ R base. CV RRR no MGR Abd: +BS NT ND Ext: no edema Neuro: a+ox3 Vital Signs Temp Pulse Resp BP Pulse Ox 36.7 C 87 16 158/88 H 97 05/26/17 07:48 05/26/17 07:48 05/26/17 07:48 05/26/17 09:40 05/26/17 07:48 05/25/17 05/26/17 05/27/17 05:59 05:59 05:59 Intake Total 675 Output Total 500 Balance 175 PT 13.4 SEC (12.0-15.0) 05/25/17 11:05 INR 1.03 (0.83-1.16) 05/25/17 11:05 ICD10 Worksheet Patient Problems: Problems Problem Status Onset Lung cancer Acute Pleural effusion Acute Right leg weakness Acute
--- NOTE | 2017-05-26 10:45 | PDHOMEO2F ---
Home Oxygen Face to Face Home Orders: I certify that a physician or a nurse practitioner or physician's animal care assistant has had a [id number] encounter with this patient on the date of this order due to the diagnosis listed, which relates to the primary reason the patient requires home oxygen. Alternative treatments have been tried, or considered, and deemed ineffective. It is anticipated that supplemental oxygen will result in improvement with treatment. Home oxygen qualifying diagnosis: metastatic lung cancer SpO2 on room air (%): 87 Frequency of home oxygen needed: continuous Home oxygen liters per minute: 2 LPM Home oxygen delivery device: nasal cannula Concentrator: Yes E-tanks for mobility and back up: Yes If ordering portable O2, is the patient mobile in the home?: Yes I certify that, based on these findings, the home oxygen is medically necessary for this patient for the following length of time. Length of time home oxygen needed: 99 years
[2017-05-26 11:32] VITALS: PULSE 94; RESP 19; TEMP 98.1; O2SAT 95
[2017-05-26 11:34] VITALS: BP 122/100
--- NOTE | 2017-05-26 15:15 | GDS ---
[f rep st] DISCHARGE SUMMARY DISCHARGE DIAGNOSES: 1. Acute hypoxemic respiratory failure secondary to pulmonary nodules and suspected recurrence of her lung cancer. 2. Right upper lobe mass with extensive pulmonary nodules, likely recurrent lung cancer with metastases. 3. Right pleural effusion, likely malignant, status post thoracentesis. Cytology is pending. 4. Right lower extremity weakness. CT head and brain MRI were negative for stroke. The patient declined a spine MRI. 5. Type 2 diabetes mellitus. 6. Hypertension. 7. Chronic heart failure. 8. Chronic kidney disease with a baseline creatinine of around 1.3. 9. Hypothyroidism. 10. Depression. CONSULTANTS: Dr. Vin Cervantes, Oncology. HISTORY: For details, please see the history and physical dated May 25, 2017. In brief, the patient is an 81-year-old female with a history of lung cancer, who underwent right upper lobe resection in 2012. She had been followed by Dr. Butts and last saw him about a year and a half ago. She presented to the emergency department with right lower extremity weakness and shortness of breath. Chest imaging revealed multiple pulmonary nodules and right upper lobe fullness suspicious for recurrence of her lung cancer. She was admitted to the hospital for further evaluation. HOSPITAL COURSE: Patient was admitted to the medical-surgical unit. As above, brain imaging was negative for an acute stroke. Given suspicion for recurrent lung cancer with metastatic disease, I recommended a whole spine MRI to rule out metastases to the spine causing her right lower extremity weakness. However , the patient refused this study. Fortunately, her symptoms improved. She is able to ambulate without any further weakness. She underwent thoracentesis for a right pleural effusion, which was suspected to be malignant. Her Light's criteria are exudative, which is also consistent with a malignant effusion. Cytology was sent and is currently pending. I discussed the case with Dr. Gregg on the day of discharge, who believes this is almost certainly a recurrence of her lung cancer, and she does have some treatment options regardless of the result of her cytology. Her symptoms are much improved after thoracentesis, although she is still requiring 2 L of oxygen, and thus, will be discharged with home oxygen. DISPOSITION: Patient is discharged home in stable condition. She made an unexpectedly rapid recovery and was thus discharged home sooner than expected. FOLLOWUP: 1. Dr. Oracio Tyson at [facility]. 2. Dr. Jeremías Humphreys, primary care. DISCHARGE MEDICATIONS: 1. [place] 5/325 one p.o. q.6 hours p.r.n., #10, no refills. 2. Home oxygen, as ordered, at 2 L/minute. Pending studies at the time of discharge: Pleural fluid aspirate culture is pending. Cytology is also pending. These can be followed up at her next oncology visit. /[id number]/MODL MTDD
--- NOTE | 2017-05-26 15:45 | ASDISCHSUM ---
Discharge Information Plan Status:Home with No Needs Medically Cleared to Leave: Discharge Date:05/26/2017 01:38 PM CM D/C Disposition:Home, Routine, Self-Care ADT D/C Disposition:Home, Routine, Self-Care Projected Discharge Date:05/26/2017 01:38 PM Transportation at D/C: Discharge Delay Reason: Follow-Up Date:05/26/2017 01:38 PM Discharge Slot: Final Diagnosis: Placement Information Patient Contact Information Contact Name:ARNOLD Relationship: Address:[address] City:[place] Alternate Phone: [facility]/Zip Code:[place] [address] Email: Financial Information Financial Class: Primary Plan Desc:MEDICARE INPATIENT Primary Plan Number:[id number] Secondary Plan Desc:[employer]/M[employer] SUPPLEMENT Secondary Plan Number:[id number] Assessment Information [facility] CM Progress Note CM Note CM Note Notes: Pt admitted for possible TIA but that was ruled out and a recurrence of her lung ca, first diagnosed in 2012, is the likely cause of her symptoms. Met with pt, and dtr. Pt had financial questions which were answered. Pt's dtr is planning on staying with pt and at [place]. Oncologist Dr Cervantes met with pt and she will f/u with her oncologist Dr Butts at [place]. Discussed with pt and family resources available for cancer pts. Pt has no [place] needs. Date Signed: 05/25/2017 03:15 PM Electronically Signed By:Emperatriz Ross LCSW [facility] CM Progress Note CM Note CM Note Notes: Pt medically stable for d/c, no CM d/c needs identified. Date Signed: 05/26/2017 03:44 PM Electronically Signed By:CAMERON Guerin Intervention Information Intervention Type:*Occurence 72 Date of Service:05/26/2017 03:27 PM Patient Type:Inpatient Staff Member:SHER Bowens Susan Hours: Discipline: Severity: Comment:
[2017-05-26] MEDS ORDERED: CARVEDILOL 6.25 MG TAB PO SCH (21:00)
[2017-05-26] MEDS ORDERED: PRAVASTATIN SODIUM 20 MG TAB PO SCH (21:00)
== END 2017-05-26 13:38 | disposition home or self-care (01) | DRG 180 ==
LOC: EDUNIT# → F3N 05-25 01:12 → OBSVTOIN 05-25 09:17
PROVIDERS: ADMIT Family Medicine; ATTEND Hospitalist
PROC: 0B9N3ZX Drainage of Right Pleura, Percutaneous Approach, Diagnostic (ICD-10-PCS; principal; 2017-05-25)
DX: C34.11 Malignant neoplasm of upper lobe, right bronchus or lung (principal); J91.0 Malignant pleural effusion; J96.01 Acute respiratory failure with hypoxia; N17.9 Acute kidney failure, unspecified; I13.0 Hypertensive heart and chronic kidney disease with heart failure and stage 1 through stage 4 chronic kidney disease, or unspecified chronic kidney disease; N18.9 Chronic kidney disease, unspecified; I50.9 Heart failure, unspecified; E11.9 Type 2 diabetes mellitus without complications; E03.9 Hypothyroidism, unspecified; K21.9 Gastro-esophageal reflux disease without esophagitis; Z99.81 Dependence on supplemental oxygen; H35.30 Unspecified macular degeneration; N63.10 Unspecified lump in the right breast, unspecified quadrant
CPT/HCPCS: 97162-GP; 97530-GP; G8978-GP-CI; G8979-GP-CI; J1650; J1815; J2405; Q9967

== ENCOUNTER → 2017-10-09 | Outpatient (CLI) | payer OTHER, MEDICARE ==
[~2017-10-09] MED LIST: IBUPROFEN 200 MG TAB PO ONE; LIDOCAINE 1% 300 MG/30 ML SDV ONE
== END ==
LOC: FIMAGING 11:27
PROVIDERS: ATTEND Internal Medicine Hematology & Oncology
PROC: 0W993ZZ Drainage of Right Pleural Cavity, Percutaneous Approach (ICD-10-PCS; principal; 2017-10-09)
DX: J90 Pleural effusion, not elsewhere classified (principal); Z85.118 Personal history of other malignant neoplasm of bronchus and lung

== ENCOUNTER 2018-01-02 13:42 | Inpatient (IN) | payer OTHER, MEDICARE ==
--- NOTE | 2018-01-02 14:40 | EDPHY ---
H & P Stated Complaint: sob for 3 weeks. fatigue, pain in back . right lung fluid Time Seen by Provider: 01/02/18 14:33 HPI/ROS: CHIEF COMPLAINT: Shortness of breath HISTORY OF PRESENT ILLNESS: The patient is an 82-year-old female with a history of recurrent lung cancer currently being treated with oral chemotherapy. She has had increased shortness of breath and cough and fevers and chills over the last few days. Yesterday at the cancer center she received a CT scan of her chest which revealed a right-sided pleural effusion as well as right-sided pneumonia versus pneumonitis as well as a questionable pericardial effusion. Dr. Butts sent her here for admission and echocardiogram and sepsis workup. Patient and report to me that she has had a history of CHF is well and has had trouble in the past with too many IV fluids. REVIEW OF SYSTEMS: Constitutional: denies: chills, fever, recent illness, recent injury EENTM: denies: blurred vision, double vision, nose congestion Respiratory: See HPI Cardiac: denies: chest pain, irregular heart rate, lightheadedness, palpitations Gastrointestinal/Abdominal: denies: abdominal pain, diarrhea, nausea, vomiting, blood streaked stools Genitourinary: denies: dysuria, frequency, hematuria, pain Musculoskeletal: denies: joint pain, muscle pain Skin: denies: lesions, rash, jaundice, bruising Neurological: denies: headache, numbness, paresthesia, tingling, dizziness, weakness Hematologic/Lymphatic: denies: blood clots, easy bleeding, easy bruising Immunologic/allergic: denies: HIV/AIDS, transplant EXAM: GENERAL: Well-appearing, well-nourished and in no acute distress. HEAD: Atraumatic, normocephalic. EYES: Pupils equal round and reactive to light, extraocular movements intact, sclera anicteric, conjunctiva are normal. ENT: TMs normal, nares patent, oropharynx clear without exudates. Moist mucous membranes. NECK: Normal range of motion, supple without lymphadenopathy or JVD. LUNGS: Somewhat distant, Breath sounds clear to auscultation bilaterally and equal. No wheezes rales or rhonchi. HEART: Regular rate and rhythm without murmurs, rubs or gallops. ABDOMEN: Soft, nontender, normoactive bowel sounds. No guarding, no rebound. No masses appreciated. BACK: No CVA tenderness, no spinal tenderness, step-offs or deformities EXTREMITIES: Normal range of motion, 1+ edema. No clubbing or cyanosis. NEUROLOGICAL: Cranial nerves II through XII grossly intact. Normal speech, normal gait. 5/5 strength, normal movement in all extremities, normal sensation PSYCH: Normal mood, normal affect. SKIN: Warm, dry, normal turgor, no visible rashes or lesions. Source: Patient, Family, RN/MD - Personal History Tetanus Vaccine Date: < 10 YRS - Medical/Surgical History Hx Asthma: Yes Hx Chronic Respiratory Disease: No Hx Diabetes: Yes Hx Cardiac Disease: Yes Hx Renal Disease: No Hx Cirrhosis: No Hx Alcoholism: No Hx HIV/AIDS: No Hx Splenectomy or Spleen Trauma: No Other PMH: lung ca, reflux,htn,upper right lung removed - Family History Significant Family History: No pertinent family hx - Social History Smoking Status: Never smoked Alcohol Use: Sober Drug Use: None Constitutional: Initial Vital Signs Temperature (C) 37.1 C 01/02/18 13:50 Heart Rate 88 01/02/18 13:50 Respiratory Rate 16 01/02/18 13:50 Blood Pressure 156/91 H 01/02/18 13:50 O2 Sat (%) 91 L 01/02/18 13:50 O2 Delivery Mode Nasal Cannula O2 (L/minute) 2 Allergies/Adverse Reactions: Penicillins Allergy (Severe, Verified 07/24/12 13:21) THROAT SWELLS, SOB/HIVES ENVIRONMENTAL Allergy (Mild, Uncoded 07/24/12 13:41) STUFFY NOSE AND COUGH Home Medications: Medication Instructions Recorded metFORMIN HCL [Glucophage 500 mg 1,000 mg PO BIDMEAL 07/24/12 (*)] FLUoxetine [Prozac 20 MG (*)] 40 mg PO DAILY 10/15/12 Carvedilol [Coreg (*)] 6.25 mg PO DAILY 05/24/17 Albuterol [Ventolin Hfa Inhaler] 2 puffs IH Q4 PRN 05/25/17 Fluticasone/Salmeter 250/50Mcg 1 puffs IH BID 05/25/17 [Advair 250/50 (*)] Latanoprost 0.005% [Xalatan 0.005% 1 drops EACHEYE HS 05/25/17 (*)] Levothyroxine [Synthroid 100 mcg 100 mcg PO DAILY06 05/25/17 (*)] Lisinopril [Zestril 10 mg (*)] 10 mg PO DAILY 05/25/17 Pravastatin Sodium 20 mg PO HS 05/25/17 C/E/Zn/Cu/OM3/DHA/EPA/LUT/ZEAX 1 each PO BID 01/02/18 [Preservision Areds 2 Softgel] Carvedilol [Coreg (*)] 12.5 mg PO HS 01/02/18 Cholecalciferol Vit D3 [Vitamin D3 2,000 units PO DAILY 01/02/18 (*)] Furosemide [Lasix 20 MG (*)] 10 mg PO DAILY 01/02/18 Neomycin/Bacitracin/Polymyxinb 1 each TP BID 01/02/18 [Neosporin Ointment Packet] Sulfamethox/Tmp 800/160 mg 1 tab PO BID 01/02/18 [Bactrim Ds] Unk Inhaler 1 puffs IH BID 01/02/18 Medical Decision Making - Diagnostics EKG Interpretation: An EKG obtained and was read and documented in trace view. Please see trace view for full reading and report. Sinus rhythm, LVH with repolarization, similar to previous Imaging Results: Imaging Impressions Chest X-Ray 01/02/18 14:38 Impression: 1. Large multiloculated right pleural effusion fusion is unchanged in volume since one day prior. 2. Cardiomegaly and pulmonary venous hypertension. No michelle failure. Imaging: Discussed imaging studies w/ call or contact centre operator Radiologist ED Course/Re-evaluation: Patient has had trouble in the past with IV fluid overload. We will be judicious with IV fluids. 3:30 p.m. I discussed the case with Dr. Ritchie Renteria who will admit. I will initiate Levaquin. Echo will be done as inpatient. She does not meet sepsis criteria. Vital signs remained stable. Differential Diagnosis: Partial list of the Differential diagnosis considered include but were not limited to; pneumonia, pleural effusion, pericardial effusion and although unlikely based on the history and physical exam, I also considered CHF, acute coronary disease, arrhythmia. - Data Points Laboratory Results: Laboratory Results 01/02/18 15:01 01/02/18 15:01 01/02/18 01/02/18 01/02/18 15:04 15:01 15:01 WBC RBC Hgb Hct MCV MCH MCHC RDW Plt Count MPV Neut % (Auto) Lymph % (Auto) [place] % (Auto) Eos % (Auto) Baso % (Auto) Nucleat RBC Rel Count Absolute Neuts (auto) Absolute Lymphs (auto) Absolute Monos (auto) Absolute Eos (auto) Absolute Basos (auto) Absolute Nucleated RBC Immature Gran % Seg Neutrophils % Band Neutrophils % Lymphocytes % Monocytes % Eosinophils % Basophils % Metamyelocytes % Myelocytes % Promyelocytes % Blast Cells % Immature Gran # Absolute Seg Neuts Absolute Band Neuts Absolute Lymphocytes Absolute Monocytes Absolute Eosinophils Absolute Basophils Absolute Metamyelocyte Absolute Myelocytes Absolute Promyelocytes Absolute Plasma Cells Absolute Blast Cells Plasma Cells % Platelet Estimate Polychromasia Hypochromasia PT INR APTT VBG Lactic Acid 0.8 mmol/L mmol/L (0.7-2.1) Sodium 133 mEq/L L mEq/L (135-145) Potassium 4.4 mEq/L mEq/L (3.3-5.0) Chloride 92 mEq/L L mEq/L (97-110) Carbon Dioxide 30 mEq/l mEq/l (22-31) Anion Gap 11 mEq/L mEq/L (8-16) BUN 23 mg/dL mg/dL (7-23) Creatinine 1.2 mg/dL H mg/dL (0.6-1.0) Estimated GFR 43 Glucose 150 mg/dL H mg/dL (70-100) Calcium 9.0 mg/dL mg/dL (8.5-10.4) Total Bilirubin 0.6 mg/dL mg/dL (0.1-1.4) Conjugated Bilirubin 0.4 mg/dL mg/dL (0.0-0.5) Unconjugated Bilirubin 0.2 mg/dL mg/dL (0.0-1.1) AST 25 IU/L IU/L (14-46) ALT 40 IU/L IU/L (9-52) Alkaline Phosphatase 88 IU/L IU/L (38-126) POC Troponin I 0.01 ng/mL ng/mL (0.00-0.08) Total Protein 6.3 g/dL g/dL (6.3-8.2) Albumin 3.6 g/dL g/dL (3.5-5.0) Lipase 391 IU/L H IU/L (23-300) 01/02/18 01/02/18 15:01 15:01 WBC 6.33 10^3/uL 10^3/uL (3.80-9.50) RBC 4.19 10^6/uL 10^6/uL (4.18-5.33) Hgb 11.6 g/dL L g/dL (12.6-16.3) Hct 37.0 % L % (38.0-47.0) MCV 88.3 fL fL (81.5-99.8) MCH 27.7 pg L pg (27.9-34.1) MCHC 31.4 g/dL L g/dL (32.4-36.7) RDW 14.1 % % (11.5-15.2) Plt Count 314 10^3/uL 10^3/uL (150-400) MPV 10.0 fL fL (8.7-11.7) Neut % (Auto) Not Reported Lymph % (Auto) Not Reported [place] % (Auto) Not Reported Eos % (Auto) Not Reported Baso % (Auto) Not Reported Nucleat RBC Rel Count Not Reported Absolute Neuts (auto) Not Reported Absolute Lymphs (auto) Not Reported Absolute Monos (auto) Not Reported Absolute Eos (auto) Not Reported Absolute Basos (auto) Not Reported Absolute Nucleated RBC Not Reported Immature Gran % Not Reported Seg Neutrophils % 84.8 % % Band Neutrophils % 0 % % Lymphocytes % 5.1 % % Monocytes % 10.1 % % Eosinophils % 0 % % Basophils % 0 % % Metamyelocytes % 0 % % Myelocytes % 0 % % Promyelocytes % 0 % % Blast Cells % 0 % % Immature Gran # Not Reported Absolute Seg Neuts 5.37 10^/uL 10^/uL (1.70-6.50) Absolute Band Neuts 0.00 10^3/uL 10^3/uL (0.00-0.70) Absolute Lymphocytes 0.32 10^3/uL L 10^3/uL (1.00-3.00) Absolute Monocytes 0.64 10^3/uL 10^3/uL (0.30-0.80) Absolute Eosinophils 0.00 10^3/uL L 10^3/uL (0.03-0.40) Absolute Basophils 0.00 10^3/uL L 10^3/uL (0.02-0.10) Absolute Metamyelocyte 0.00 10^3/mL 10^3/mL (0.00-0.00) Absolute Myelocytes 0.00 10^3/mL 10^3/mL (0.00-0.00) Absolute Promyelocytes 0.00 10^3/uL 10^3/uL (0.00-0.00) Absolute Plasma Cells 0.00 10^3/uL 10^3/uL (0.00-0.00) Absolute Blast Cells 0.00 10^3/uL 10^3/uL (0.00-0.00) Plasma Cells % 0 % % Platelet Estimate ADEQUATE (ADEQ) Polychromasia 1+ H Hypochromasia 1+ H PT 14.2 SEC SEC (12.0-15.0) INR 1.08 (0.83-1.16) APTT 28.5 SEC SEC (23.0-38.0) VBG Lactic Acid Sodium Potassium Chloride Carbon Dioxide Anion Gap BUN Creatinine Estimated GFR Glucose Calcium Total Bilirubin Conjugated Bilirubin Unconjugated Bilirubin AST ALT Alkaline Phosphatase POC Troponin I Total Protein Albumin Lipase Medications Given: Metformin HCl (Glucophage) 1,000 mg PO BIDMEAL ZEFERINO Stop: 07/01/18 17:59 Last Admin: 01/02/18 18:37 Dose: 1,000 mg Discontinued Medications Levofloxacin/Dextrose (Levaquin 750 Mg (Premix)) 150 mls @ 100 mls/hr IV EDNOW ONE PRN Reason: Protocol Stop: 01/02/18 16:58 Last Admin: 01/02/18 16:06 Dose: 150 mls Point of Care Test Results: Chemistry 01/02/18 15:04 POC Troponin I 0.01 ng/mL ng/mL (0.00-0.08) Departure - Departure Disposition: [facility] Acute Clinical Impression: Pleural effusion Pneumonia Qualifiers: Pneumonia type: due to unspecified organism Laterality: left Lung location: lower lobe of lung Qualified Code(s): J18.1 - Lobar pneumonia, unspecified organism Condition: Fair
[2018-01-02 15:14] LABS: PLATELET COUNT 314 10^3/uL (150-400)
--- NOTE | 2018-01-02 15:19 | CPEKG ---
Heart Rate: 81 RR Interval: 741 P-R Interval: 188 QRSD Interval: 106 QT Interval: 424 QTC Interval: 493 P [place]: 39 QRS [place]: 36 T Wave [place]: 107 EKG Severity - ABNORMAL ECG - EKG Impression: SINUS RHYTHM EKG Impression: LVH WITH SECONDARY REPOLARIZATION ABNORMALITY EKG Impression: Similar to previous Electronically Signed By: Burton Ha 02-Jan-2018 15:20:34
[2018-01-02 15:20] LABS: INR 1.08 (0.83-1.16); PROTIME(PATIENT) 14.2 SEC (12.0-15.0)
--- NOTE | 2018-01-02 15:48 | PDGENHP ---
History and Physical History and Physical: CC: Shortness of breath worsening over several days HISTORY: This patient with chronic hypoxemic respiratory failure on home oxygen with known recurrent lung cancer is sent in by the [facility] after CT scan done yesterday reportedly shows right pleural effusion, question of pericardial effusion, and some right lung density. The patient states see me that she has been having gradually worsening fatigue, weakness and dyspnea over 3 weeks. She has a slight cough with occasional white foamy phlegm but no upper respiratory tract infection symptoms and no definite fevers though she has an occasional chill. She has no anginal-type chest pains and no palpitations. She does have a history of systolic heart failure but has not been noticing any orthopnea recently. She does think perhaps her ankles are a little bit more swollen usual but not terribly much. She does have known chronic hypoxemic respiratory failure with pulmonary hypertension, secondhand smoke exposure, asthma since age 3 using inhalers now, and 24/7 home oxygen. She does not think that she has increased asthma at this time. She does admit to side effects of her current chemotherapy medicine including the fatigue, diarrhea, and sore finger tips. Patient originally had a lung cancer resected from right upper lobe in 2012 with right upper lobectomy. 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 She has been receiving daily oral Gilotrif since then, a targeted therapy for her EGFR deletion alteration positive tumor. She is known to have ongoing right pleural effusions Notably 5 days ago on Friday, the patient was feeling significant shortness of breath and diffuse pains, such that she actually was concerned that she would on that day. She does not have that same feeling at this time. She was worried enough about though that she called her primary care physician who came out and visited her at home. Their discussion at that time did include that the physician assisted suicide is an option in [place], and was actually something that she thought she would consider if her symptoms were ongoing as they were on that day. She is not currently depressed or suicidal per se and I do not think needs any mental health evaluation at this moment. ROS: A comprehensive 10 system review revealed no other significant findings PAST MEDICAL HISTORY: Lung cancer as above Chronic hypoxemic respiratory failure with home use of oxygen Systolic congestive heart failure with mitral regurgitation, last ejection fraction 38% in May Pulmonary hypertension measured at 50 by echo in May Chronic kidney disease Hypertension Diabetes type 2 Hypothyroid Reflux disease Depression Senile macular degeneration Total knee arthroplasties Appendectomy Lumpectomy for benign breast lump FAMILY MEDICAL HISTORY: Coronary disease, myocardial infarctions, TIAs SOCIAL HISTORY: to her [place] No tobacco alcohol or drug use In past has requested full cor orders during hospitalizations MEDICATIONS: The patients list has been reconciled by our clinical pharmacist in the EMR. I have reviewed the list and ordered appropriate medicines. PHYSICAL EXAMINATION: Vital Signs: Mildly hypertensive at 156/91 otherwise normal without fever [employer] Operator: Sinus Examination: General: alert, oriented, good mentation, relaxed Skin: warm, dry, good color, no rash HEENT: normal Neck: no mass or jvd Resps: Very mildly labored at rest Lungs: Diffusely diminished breath sounds with no wheeze or rales Heart: regular, no murmur audible at present Abdomen: soft, nondistended, nontender, +BS, no mass Upper Extremities: normal Lower Extremities: Trace if any edema, warm No Bleeding or bruising Neurologic: normal speech/language, normal shirt creaser, no focal weakness IV site: looks normal LABORATORY DATA: Baseline normocytic anemia with hemoglobin 11.6, otherwise unremarkable CBC Chem panel remarkable for creatinine 1.2 which is her baseline, sodium 133, glucose 150, otherwise unremarkable metabolic panels A troponin was done in the ER which is normal INR 1.0 RADIOLOGY STUDIES: I was able to review her CT scan images from [facility] from yesterday with Dr. Ruiz today. There is a very large and multiloculated right-sided pleural effusion, essentially the same anatomically loculated collections of fluid that had been present on past CTs but larger at this time than her most recent CT in September of this year. There is some density in the right middle lobe which appears most likely due to atelectasis though could not entirely rule out infiltrate. There are no air bronchograms present. The right upper lobe is missing due to resection. Her heart is enlarged compared to what was seen on her September CT scan 12 LEAD EKG: Pending at this time I have also ordered an echocardiogram which is pending at this time ASSESSMENT: # ACUTE ON CHRONIC HYPOXEMIC RESPIRATORY FAILURE (she is home oxygen dependent) # WORSENING RIGHT-SIDED LOCULATED PLEURAL EFFUSIONS WHICH IN THE PAST HAVE BEEN DEMONSTRATED TO BE DUE TO MALIGNANT DISEASE # KNOWN ASTHMA AND SECONDHAND SMOKE EXPOSURE HOWEVER NO DEFINITE SIGNS OF ACUTE REACTIVE AIRWAY DISEASE OR COPD EXACERBATION # KNOWN LUNG CANCER # NO DEFINITE EVIDENCE AT THIS TIME OF ACUTE LEFT-SIDED CHF; KNOWN SYSTOLIC LEFT VENTRICULAR DISEASE, MOST RECENT EJECTION FRACTION 38% WITH MILD TO MODERATE MITRAL REGURGITATION # KNOWN PULMONARY HYPERTENSION # DIABETES MELLITUS TYPE 2 WITH REASONABLE BLOOD SUGAR CONTROL HERE SO FAR # CHRONIC HYPERTENSION # STABLE CHRONIC NORMOCYTIC ANEMIA MILD At present looking at her situation I believe that the most likely thing causing her worsening respiratory failure is the enlarged pleural effusions. However at this point will get another echocardiogram to make sure that she does not have pericardial effusion as was questioned on the CT scan, and be sure that there is an a significant worsening of her left-sided heart disease. Though she does not appear to have pulmonary edema at present it could be that left heart disease would aggravate her pleural effusions. PLANS: * INPATIENT HOSPITAL ADMISSION * ECHOCARDIOGRAM TO ASSESS FOR POSSIBLE PERICARDIAL EFFUSION ANY WORSENING OF HER KNOWN CARDIAC ISSUES; FURTHER PLANS AFTER THAT STUDY IS DONE * WILL ARRANGE FOR HER TO HAVE A THORACENTESIS OF THE RIGHT SIDE FROM THE LARGEST COLLECTION FLUID WHICH I EXPECT WILL BENEFIT HER IN TERMS OF HER RESPIRATORY AND FATIGUE SYMPTOMS * WILL MONITOR BLOOD SUGARS AND BLOOD PRESSURES CAREFULLY HERE * ONGOING REVIEW OF HER CARE PLAN DESIRES AND WISHES, AND A PALLIATIVE CONSULTATION MAY BE APPROPRIATE GIVEN HER RECENT CONVERSATION WITH HER PRIMARY CARE I have reviewed the patient's case in detail with Dr. Burton Ha I have reviewed the patient's past medical records as part of this assessment, including previous hospital admission records including physician notes, laboratory data, pathology reports
--- NOTE | 2018-01-02 17:14 | ECHO ---
[email or web address] [address] [address] Main: [phone] Fax: Transthoracic Echocardiogram Name: MARCELO RANGEL MR#: [id number] Study Date: 01/02/2018 Study Time: 04:38 PM Date of : 1935 Age: 82 year(s) Height: 160 cm (63 in.) Weight: 77.11 kg (170 lb.) BSA: 1.8 m2 Gender: Female Examination: Echo Indication: Evaluate LV function/MR/pulmonary HTN/pericardial effusion Image Quality: Contrast: Requested by: Vinh Renteria BP: / Heart Rate: Rhythm: Indication: Evaluate LV function/MR/pulmonary HTN/pericardial effusion Procedure Staff Professor Of Sport Management: Nancy Ann [facility] Reading Physician: Shellie Macias MD Requesting Provider: Conclusions: Normal size left ventricle. Severely reduced systolic LV function. The ejection fraction is estimated to be 20-25 %. Normal size right ventricle. Mild to moderate mitral regurgitation. The pulmonary artery pressure is moderately increased. RVSP is 54mmHG.. Trivial pericardial effusion. Left side pleural effusion. Compared with May 2017 LV systolic function is worse. Pleural effusion now present. Measurements: Chambers Valvular Assessment AV/MV Valvular Assessment TV/PV Normal Normal Normal Name Value Range Name Value Range Name Value Range Ao Layla (MM): 2.9 cm (2.2 cm-3.7 AV Vmax: 1.21 m/s (1 m/s-1.7 TR Vmax: 3.49 mm/s ( - ) cm) m/s) TR PGmax: 49 mmHg ( - ) IVSd (2D): 1.1 cm (0.6 cm-1.1 AV maxP mmHg ( - ) syst. PAP: 54 mmHg ( - ) cm) AV meanP mmHg ( - ) LVDd (2D): 5.6 cm (3.9 cm-5.3 MV E Vmax: 0.94 m/s ( - ) cm) MV A Vmax: 1.13 m/s ( - ) LVDs (2D): 5.0 cm (2.1 cm-4 MV E/A: 0.83 ( - ) cm) LVPWd (2D): 0.9 cm ( - ) LVEF (BP): 21 % (>=55 %) EF Range: 20-25 % Continued Measurements: Chambers Valvular Assessment AV/MV Valvular Assessment TV/PV Patient: MARCELO RANGEL Study Date: 01/02/2018 Page 1 of 2 04:38 PM Name Value Name Value Name Value LADs: 4.7 cm MV E/E' Septal: 34.50 CVP (est.): 5 mmHg LADs Lon.1 cm MV E/E' Lateral: 31.20 LA Area: 25.1 cm2 Findings: Left Ventricle: Normal size left ventricle. Severely reduced systolic LV function. The ejection fraction is estimated to be 20-25 %. Diastolic dysfunction is present. . Right Ventricle: Normal size right ventricle. Left Atrium: The left atrium is mildly dilated. Right Atrium: The right atrium is mildly dilated. Mitral Valve: Mild mitral annular calcification. Mild to moderate mitral regurgitation. Aortic Valve: Mild aortic cusp calcification is noted. Tricuspid Valve: The tricuspid valve is normal in appearance and function. Mild tricuspid regurgitation is present. The pulmonary artery pressure is moderately increased. RVSP is 54mmHG.. Pulmonic Valve: The pulmonic valve is normal in appearance and function. Trivial pulmonic valve regurgitation. Aorta: The aorta is normal. Pericardium: Trivial pericardial effusion. Left side pleural effusion. Exam Comments: Compared to the previous echo of 06/06, the EF has worsened.. (No Signature Object) Patient: MARCELO RANGEL Study Date: 01/02/2018 Page 2 of 2 04:38 PM [id number]
--- NOTE | 2018-01-02 17:50 | PDMN ---
Medical Necessity Medical necessity: Pt meets IP criteria per MD; est los >2 mn for eval/tx of acute on chronic hypoxemic respiratory failure w/worsening enlarged pleural effusion; r/o pericardial effusion/worsening heart disease; admit for further workup/monitoring & thoracentesis; hx lung cancer, pulmonary htn, htn, diabetes ; per H&P & order 01/02/18
[2018-01-02] MEDS ORDERED: ACETAMINOPHEN 325 MG TAB PO PRN (17:55)
[2018-01-02] MEDS ORDERED: ZOLPIDEM TARTRATE 5 MG TAB PO PRN (17:55)
[2018-01-02] MEDS ORDERED: ONDANSETRON DISINTEGRATING 4 MG TAB PO PRN (17:55)
[2018-01-02] MEDS ORDERED: ONDANSETRON 4 MG/2 ML VIAL IVP PRN (17:55)
[2018-01-02] MEDS ORDERED: FUROSEMIDE 20 MG/2 ML VIAL IVP ONE (18:01)
[2018-01-02] MEDS: metFORMIN HCL 500 MG TAB PO SCH (18:37)
[2018-01-02] MEDS: FLUTICASONE/SALMETER 250/50MCG DISKUS IH SCH (20:39)
[2018-01-02] MEDS ORDERED: CARVEDILOL 6.25 MG TAB PO SCH (21:00)
[2018-01-02] MEDS: LATANOPROST 0.005% 2.5 ML OPHT DROPS EACHEYE SCH (21:04)
[2018-01-02] MEDS: PRAVASTATIN SODIUM 20 MG TAB PO SCH (21:10)
[2018-01-02] MEDS: SULFAMETHOX/TMP 800/160 MG 1 TAB PO SCH (21:11)
[2018-01-02] MEDS: PRESERVISION AREDS2 FORMULA EYE VIT 1 EACH PO SCH (21:11)
[2018-01-02] MEDS: HEPARIN 5,000 UNIT/0.5 ML INJ SC SCH ×2 (21:11→23:36)
[2018-01-02] MEDS ORDERED: TEARS/DEXTRAN 70/HYPROMELLOSE 15 ML OPHT.BTL EACHEYE PRN (23:38)
[2018-01-03] MEDS: LEVOTHYROXINE 100 MCG TAB PO SCH (05:28)
--- NOTE | 2018-01-03 08:53 | GCON ---
[f rep st] CONSULTATION INPATIENT ONCOLOGY CONSULTATION. DATE OF CONSULTATION: 01/03/2018 REFERRING PHYSICIAN: Vinh Renteria MD OUTPATIENT ONCOLOGIST: Dr. Oracio Butts. REASON FOR CONSULTATION: Progressive non-small cell lung cancer. 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 She originally presented in 2013 with early stage disease and underwent resec tion. In 2017, she had a recurrence of bilateral lung nodules and a left-sided pleural effusion. Greg rosario was found to have an EGFR mutation and was started on afatinib, a targeted therapy. She had a good response and has been on that medication until very recently. She began to develop some rashes that were thought to be related, and the dose was lowered. Then she began to feel more poorly and short of breath. A CT scan revealed an enlarging, left-sided pleural effusion. There was also some eviden ce of congestive heart failure. She was admitted to the hospital. There was also some right lower l obe infiltrate, which could represent pneumonia or post-radiation pneumonitis. PAST MEDICAL HISTORY: 1. Congestive heart failure. 2. Non-small cell lung cancer, as noted above. MEDICATIONS: Currently include carvedilol, Lasix 10 mg p.o. daily, Synthroid, lisinopril, metformin, Pravachol, Advair, Bactrim. She also received a single dose of levofloxacin. ALLERGIES: Penicillins. FAMILY HISTORY: Noncontributory. SOCIAL HISTORY: She is a nonsmoker and lives with her . REVIEW OF SYSTEMS: Pertinent positives in the HPI. A 14-point review of systems is negative. EXAMINATION: VITAL SIGNS: Temperature was 36.5, blood pressure 146/93, heart rate 72, oxygen satura tion 97% on room air. GENERAL: She is an elderly woman, breathing comfortably. HEENT: Sclerae wer e anicteric. Oropharynx was clear. NECK: Supple, without lymphadenopathy. LUNGS: Notable for dec reased breath sounds at the right base. No crackles. CARDIOVASCULAR: There was a holosystolic murm ur. ABDOMEN: Normoactive bowel sounds, nontender. EXTREMITIES: 2+ edema. LABORATORY DATA: White count 6.3, hemoglobin 11.6, platelets of 314. Sodium 133, potassium 4.4, chl oride 92, bicarb 30, BUN 23, creatinine 1.2. Liver function tests were normal. BNP was not tested. An echocardiogram revealed an ejection fraction of 20% to 25%, which is significantly decreased from previously. There was a trivial pericardial effusion. There was a left-sided pleural effusion. Ch est x-ray revealed a multiloculated effusion on the right side. IMPRESSION: This is an 82-year-old woman with EGFR positive non-small cell lung cancer, presenting w ith dyspnea. This appears to be both due to congestive heart failure, as well as an enlarging right- sided effusion. She is receiving diuretics and will undergo a thoracentesis to try to relieve some o f her dyspnea today. The bigger question is whether her disease is progressive. Aside from the enlarging pleural effusion , there is no evidence of progressive disease. There are other EGFR inhibitors that could be used if the side-effect profile is of some concern, and one of them, osimertinib, is active against the T790 M mutation, which is seen as a secondary mutation in about 50% of patients with EGFR mutations. I severino ggested that she discuss this with Dr. Butts in the outpatient setting once we get her feeling a bi t better in terms of the best direction for her therapy. Thank you for this consultation. We will continue to follow patient with you in the hospital. /[id number]/MODL
[2018-01-03] MEDS ORDERED: CARVEDILOL 6.25 MG TAB PO SCH ×2 (09:00→18:00)
[2018-01-03] MEDS ORDERED: D50W 25 GM/50 ML SYR IVP PRN (09:07)
[2018-01-03] MEDS ORDERED: FUROSEMIDE 20 MG/2 ML VIAL IVP ONE (09:59)
[2018-01-03] MEDS: LISINOPRIL 10 MG TAB PO SCH (10:54)
[2018-01-03] MEDS: FLUoxetine 20 MG CAP PO SCH (10:56)
[2018-01-03] MEDS: FLUTICASONE/SALMETER 250/50MCG DISKUS IH SCH ×2 (10:58→19:57)
[2018-01-03] MEDS: ALBUTEROL 60 PUFFS/8 GM MDI IH PRN ×2 (10:59→19:57)
--- NOTE | 2018-01-03 10:59 | HOSPPROG ---
Hospitalist Progress Note Assessment/Plan: #Lung Cancer #right sided pleural effusion #Acute on chronic respiratory failure #Acute CHF systolic and right sided failure -TTE c/w worsening LV systolic function, EF 20-25%, RVSP 54mmHg -Give additional IV diuretics today -already on an OLI-I and BB #Hypothyroidism -Start Levothyroxine SCD's Inpatient Onc following Subjective: SOB is improving. Will have thoracentesis today. Objective: Vital Signs Temp Pulse Resp BP Pulse Ox 36.6 C 77 18 141/105 H 98 01/03/18 09:41 01/03/18 09:41 01/03/18 09:41 01/03/18 09:41 01/03/18 09:41 Microbiology 01/02/18 16:55 Respiratory Panel (PCR) - Final Nasal, Sinus - Swab No Organism Detected 01/02/18 01/03/18 01/04/18 05:59 05:59 05:59 Intake Total 1050 Balance 1050 PT 14.2 SEC (12.0-15.0) 01/02/18 15:01 INR 1.08 (0.83-1.16) 01/02/18 15:01 - Physical Exam Constitutional: no apparent distress Eyes: PERRL, EOMI Ears, Nose, Mouth, Throat: moist mucous membranes, hearing normal Cardiovascular: regular rate and rhythym, edema (trace) Respiratory: reduced air movement Gastrointestinal: normoactive bowel sounds, soft, non-tender abdomen Skin: warm Neurologic: AAOx3 Psychiatric: interacting appropriately, not anxious, not encephalopathic ICD10 Worksheet Patient Problems: Problems Problem Status Onset Pleural effusion Acute Pneumonia Acute Lung cancer Acute Right leg weakness Acute
[2018-01-03] MEDS: PRESERVISION AREDS2 FORMULA EYE VIT 1 EACH PO SCH ×2 (11:14→20:08)
[2018-01-03] MEDS: CHOLECALCIFEROL VIT D3 2,000 UNITS TAB/CAP PO SCH (11:15)
[2018-01-03] MEDS: metFORMIN HCL 500 MG TAB PO SCH (11:16)
[2018-01-03] MEDS: SULFAMETHOX/TMP 800/160 MG 1 TAB PO SCH ×2 (12:23→20:08)
--- NOTE | 2018-01-03 12:39 | ASMTCMCOM ---
CM Note CM Note Notes: CM reviewed PT's chart for D/C planning. Pt is a 82 y/o Pt sent in by [facility] after CT scan done on 01/01/18 reportedly showed right pleural effusion, question of pericardial effusion and some right lung density. She has chrocic hypoxemic respiratory failure, is on home oxygen and has recurrent lung cancer. Pt is , Oracio [phone]. Her daughter is Rosario, . She D/C from [facility] to her home last May; no D/C needs were identified at that time. CM will follow to determine D/C needs. D/C Plan: TBD D/C Plan: TBD Date Signed: 01/03/2018 12:38 PM Electronically Signed By:Kenzie Angel
[2018-01-03] MEDS: INSULIN LISPRO 100 UNIT/ML SC SCH ×2 (12:58→18:56)
--- NOTE | 2018-01-03 13:53 | PDRADPN ---
Radiology Procedure Note Date of Procedure: 01/03/18 Radiologist: Rick Ralph Anesthesia: LMA Pre-op Diagnosis: large right effusion Post-op Diagnosis: same Indication: h/o lung ca. dx/tx Procedure: thoracentesis Finding(s): 1.2L of clear yellow fluid removed. no sig residual. Inf/Abcess present in the surg proc area at time of surgery?: No Complications: none Specimen(s): yes
[2018-01-03] MEDS ORDERED: FUROSEMIDE 20 MG/2 ML VIAL ONE (14:18)
[2018-01-03] MEDS: CARVEDILOL 6.25 MG TAB PO SCH (17:05)
[2018-01-03] MEDS: FUROSEMIDE 20 MG TAB PO SCH (17:06)
[2018-01-03] MEDS: PRAVASTATIN SODIUM 20 MG TAB PO SCH (19:56)
[2018-01-03] MEDS: LATANOPROST 0.005% 2.5 ML OPHT DROPS EACHEYE SCH (20:08)
[2018-01-04 04:41] LABS: PLATELET COUNT 268 10^3/uL (150-400)
[2018-01-04] MEDS: LEVOTHYROXINE 100 MCG TAB PO SCH (06:07)
--- NOTE | 2018-01-04 07:06 | CPEKG ---
Heart Rate: 77 RR Interval: 779 P-R Interval: 188 QRSD Interval: 106 QT Interval: 404 QTC Interval: 458 P [place]: 51 QRS [place]: 52 T Wave [place]: 141 EKG Severity - ABNORMAL ECG - EKG Impression: SINUS RHYTHM EKG Impression: PROBABLE LEFT ATRIAL ABNORMALITY EKG Impression: LVH WITH SECONDARY REPOLARIZATION ABNORMALITY Electronically Signed By: Felicia Perea 05-Jan-2018 05:48:10
[2018-01-04] MEDS: INSULIN LISPRO 100 UNIT/ML SC SCH ×2 (08:20→11:49)
[2018-01-04] MEDS: CARVEDILOL 6.25 MG TAB PO SCH (08:22)
[2018-01-04] MEDS: FUROSEMIDE 20 MG TAB PO SCH (08:24)
[2018-01-04] MEDS: FLUoxetine 20 MG CAP PO SCH (08:24)
[2018-01-04] MEDS: LISINOPRIL 10 MG TAB PO SCH (08:25)
[2018-01-04] MEDS: SULFAMETHOX/TMP 800/160 MG 1 TAB PO SCH (08:25)
[2018-01-04] MEDS: PRESERVISION AREDS2 FORMULA EYE VIT 1 EACH PO SCH (08:26)
[2018-01-04] MEDS: CHOLECALCIFEROL VIT D3 2,000 UNITS TAB/CAP PO SCH (08:27)
[2018-01-04] MEDS: FLUTICASONE/SALMETER 250/50MCG DISKUS IH SCH (08:54)
[2018-01-04] MEDS: ALBUTEROL 60 PUFFS/8 GM MDI IH PRN (08:55)
--- NOTE | 2018-01-04 10:23 | SOAPPROG ---
SOAP Progress Note Assessment/Plan: Assessment: 1. Metastatic NSCLC, EGFR+ 2. Congestive heart failure 3. R sided pleural effusion Effusion transudative, very acellular. More likely to be related to CHF rather than cancer. In that context, her cancer may still be well controlled by her current therapy, and her symptoms on this admission are likely due to the CHF alone. Plan: - continue to hold afatinib given toxicity; may rechallenge as outpatient or change to another TKI - will need outpatient cardiology followup for better management of her CHF 01/04/18 10:21 Subjective: feels better today. less short of breath. Objective: exam: Lungs CTAB CV RRR no mgr Abd: +Bs NT nD ext: no edema Neuro: a+ox3. Vital Signs Temp Pulse Resp BP Pulse Ox 36.4 C 86 20 113/69 95 01/04/18 07:29 01/04/18 08:22 01/04/18 07:29 01/04/18 08:25 01/04/18 07:29 Microbiology 01/03/18 14:01 Gram Stain - Final Thoracic Fluid - Aspirate Laboratory Results 01/04/18 04:25 01/04/18 04:25 01/03/18 01/04/18 01/05/18 05:59 05:59 05:59 Intake Total 1050 350 Output Total 1200 Balance 1050 350 -1200 PT 14.2 SEC (12.0-15.0) 01/02/18 15:01 INR 1.08 (0.83-1.16) 01/02/18 15:01 ICD10 Worksheet Patient Problems: Problems Problem Status Onset Pleural effusion Acute Pneumonia Acute Lung cancer Acute Right leg weakness Acute
[2018-01-04 11:20] VITALS: BP 120/81
[2018-01-04] MEDS ORDERED: FUROSEMIDE 20 MG TAB PO SCH (13:15)
--- NOTE | 2018-01-04 13:17 | PDDCSUM ---
Discharge Summary Discharge Summary: This ia a 82 yo female with lung cancer who was admitted due to CHF-E and right sided pleural effusion. She was diuresed appropriately and her Lasix has been increased to 20mg daily. Echo was c/w with worsening LVEF. She is already on a BB and an OLI-I. Her baseline O2 is 2L, she is now down to 1L . She will f/u with her PCP to determine need for Card eval. DDX: #Lung Cancer: cont with current Onc care -Thoracentesis was c/w transudative process #right sided pleural effusion #Acute on chronic respiratory failure #Acute CHF systolic and right sided failure -TTE c/w worsening LV systolic function, EF 20-25%, RVSP 54mmHg -increase home Lasix -already on an OLI-I and BB #Hypothyroidism -She will d/w her PCP need for starting Levothyroxine VS repeating test Exam: NAD AAOX3 RRR CTA B S/NT/ND NO LE EDEMA F/U: PER ABOVE MEDS: LASIX INCREASED, NO OTHER CHANGES TOTAL TIME SPENT ON D/C IS 35 MINS
== END 2018-01-04 14:10 | disposition home or self-care (01) | DRG 291 ==
LOC: OBSVTOIN 16:02 → F1N 17:27
PROVIDERS: ADMIT Internal Medicine; ATTEND Internal Medicine
PROC: 0B9N3ZZ Drainage of Right Pleura, Percutaneous Approach (ICD-10-PCS; principal; 2018-01-03)
DX: I50.21 Acute systolic (congestive) heart failure (principal); J96.20 Acute and chronic respiratory failure, unspecified whether with hypoxia or hypercapnia; C34.10 Malignant neoplasm of upper lobe, unspecified bronchus or lung; J90 Pleural effusion, not elsewhere classified; I50.810 Right heart failure, unspecified; E03.9 Hypothyroidism, unspecified; J45.909 Unspecified asthma, uncomplicated; I27.20 Pulmonary hypertension, unspecified; Z77.22 Contact with and (suspected) exposure to environmental tobacco smoke (acute) (chronic)
CPT/HCPCS: 84484-PO; 97116-GP; 97161-GP; 97165-GO; G8978-GP-CI; G8979-GP-CI; G8980-GP-CI; G8987-GO-CI; G8988-GO-CI; G8989-GO-CI; J1644; J1815; J1940; J1956